=== PATIENT | female | born 1965 | race Caucasian/White ===

== ENCOUNTER → 2018-07-13 11:40 | Outpatient (CLI) | payer OTHER, SELFPAY ==
--- NOTE | 2018-07-13 11:42 | DI.MG.S_ITS ---
BILATERAL DIGITAL SCREENING MAMMOGRAM 3D/2D WITH CAD: 07/13/2018 CLINICAL: Routine screening. Comparison is made to exams dated: 08/08/2015 mammogram - [facility], 07/27/2014 mammogram, and 07/20/2014 mammogram - [facility] [place]. The tissue of both breasts is heterogeneously dense. This may lower the sensitivity of mammography. Current study was also evaluated with a Computer Aided Detection (CAD) system. No significant masses, calcifications, or other findings are seen in either breast. There has been no significant interval change. IMPRESSION: NEGATIVE There is no mammographic evidence of malignancy. A 1 year screening mammogram is recommended. This exam was interpreted at Station ID: [id number]. NOTE: For mammograms, a report in lay terms will be sent to the patient. Approximately 15% of breast malignancies will not be visualized mammographically. In the management of a palpable breast mass, a negative mammogram must not discourage biopsy of a clinically suspicious lesion. Electronically Signed By: Steffi gonzalez/juno:07/13/2018 14:39:31 letter sent: Normal Exam ACR BI-RADS Category 1: Negative 3341F
== END ==
PROVIDERS: PCP Family Medicine; Visit Provider Family Medicine
DX: Z12.31 Encounter for screening mammogram for malignant neoplasm of breast (principal)
CPT/HCPCS: 77063; 77067

== ENCOUNTER → 2018-07-15 06:37 | Outpatient (CLI) | payer OTHER, SELFPAY ==
[2018-07-15 07:45] LABS: Add Manual Diff / Slide Review NO; Basophils Percent Auto 1.2 % (0-2); Eosinophils Percent Auto 1.8 % (2-4); Hematocrit 39.3 % (36-46); Hemoglobin 13.2 g/dL (12.0-16.0); Lymphocytes Percent Auto 34.6 % (25-40); Mean Corpuscular HGB Conc 33.6 % (30-36); Mean Corpuscular Hemoglobin 30.1 PG (26-34); Mean Corpuscular Volume 89.4 fL (80-100); Neutrophils Absolute Auto 3200 /uL (3000-5900); Neutrophils Percent Auto 54.4 % (50-75); Platelet Count 267 X10^3/uL (150-400); Red Blood Cell Count 4.39 X10^6/uL (4.0-5.2); Red Cell Distribution Width 12.9 % (11.6-14.8); White Blood Cell Count 5.8 X10^3/uL (4.5-11.0)
[2018-07-15 07:57] LABS: Alanine Aminotransferase 25 IU/L (9-52); Albumin 4.4 g/dL (3.5-5.0); Albumin Globulin Ratio 1.5 (1.0-2.8); Alkaline Phosphatase 60 U/L (38-126); Aspartate Aminotransferase 28 IU/L (14-36); BUN Creatinine Ratio 16.3 (6-22); Bilirubin Total 0.5 mg/dL (0.2-1.3); Blood Urea Nitrogen 13 mg/dL (7-17); Calcium 9.5 mg/dL (8.4-10.2); Carbon Dioxide 30 mmol/L (22-32); Chloride 102 mmol/L (98-107); Cholesterol 200 mg/dL (140-199); Estimated Glomerular Filt Rate > 60.0 mL/min (>60); Glucose 101 mg/dL (70-100); HDL Cholesterol 66 mg/dL (40-60); HEMOLYSIS < 15 (0-50); LDL Cholesterol Calculated 97 mg/dL (<100); Potassium 4.5 mmol/L (3.4-5.1); Sodium 141 mmol/L (137-145); Total Protein 7.4 g/dL (6.3-8.2); Triglycerides 186 mg/dL (35-150)
[2018-07-15 08:21] LABS: Vitamin D 25 Hydroxy (D3) 50.5 ng/mL (30.0-100.0)
== END ==
PROVIDERS: PCP Family Medicine; Visit Provider Family Medicine
DX: Z86.2 Personal history of diseases of the blood and blood-forming organs and certain disorders involving the immune mechanism (principal); Z13.1 Encounter for screening for diabetes mellitus; E55.9 Vitamin D deficiency, unspecified; Z13.220 Encounter for screening for lipoid disorders
CPT/HCPCS: 36415; 80053; 80061; 82306; 85025

== ENCOUNTER → 2018-09-08 09:00 | Outpatient (CLI) | payer OTHER, SELFPAY | PROVIDERS: PCP Family Medicine | DX: Z23 Encounter for immunization (principal) | CPT/HCPCS: 90471; 90686 ==

== ENCOUNTER → 2019-08-25 12:04 | Outpatient (CLI) | payer OTHER, SELFPAY ==
--- NOTE | 2019-08-25 | DI.MG.S_ITS ---
BILATERAL DIGITAL SCREENING MAMMOGRAM 3D/2D WITH CAD: 08/25/2019 CLINICAL: Routine screening. Comparison is made to exams dated: 07/13/2018 mammogram, 08/08/2015 mammogram - [facility], and 07/27/2014 mammogram - [facility]. The tissue of both breasts is heterogeneously dense. This may lower the sensitivity of mammography. Current study was also evaluated with a Computer Aided Detection (CAD) system. No significant masses, calcifications, or other findings are seen in either breast. There has been no significant interval change. IMPRESSION: NEGATIVE There is no mammographic evidence of malignancy. A 1 year screening mammogram is recommended. This exam was interpreted at Station ID: [id number]. NOTE: For mammograms, a report in lay terms will be sent to the patient. Approximately 15% of breast malignancies will not be visualized mammographically. In the management of a palpable breast mass, a negative mammogram must not discourage biopsy of a clinically suspicious lesion. Electronically Signed By: Kathy faulkner/juno:08/25/2019 16:13:24 letter sent: Normal Exam ACR BI-RADS Category 1: Negative 3341F
== END ==
PROVIDERS: PCP Family Medicine; Visit Provider Family Medicine
DX: Z12.31 Encounter for screening mammogram for malignant neoplasm of breast (principal)
CPT/HCPCS: 77063; 77067

== ENCOUNTER → 2019-09-14 14:44 | Outpatient (CLI) | payer OTHER, SELFPAY | PROVIDERS: PCP Family Medicine | DX: Z23 Encounter for immunization (principal) | CPT/HCPCS: 90471; 90686 ==

== ENCOUNTER → 2020-08-29 09:07 | Outpatient (CLI) | payer OTHER, SELFPAY ==
[2020-08-29 10:14] LABS: Add Manual Diff / Slide Review NO; Basophils Absolute Auto 100 /uL (0-100); Basophils Percent Auto 1.2 % (0-2); Eosinophils Absolute Auto 100 /uL (0-450); Eosinophils Percent Auto 2.1 % (2-4); Hematocrit 38.6 % (36-46); Hemoglobin 12.6 g/dL (12.0-16.0); Lymphocytes Absolute Auto 1400 /uL (1100-4500); Lymphocytes Percent Auto 26.2 % (25-40); Mean Corpuscular HGB Conc 32.7 % (30-36); Mean Corpuscular Volume 88.7 fL (80-100); Monocytes Absolute Auto 300 /uL (0-900); Monocytes Percent Auto 6.2 % (3-14); Neutrophils Absolute Auto 3500 /uL (1500-7000); Neutrophils Percent Auto 64.3 % (50-75); Platelet Count 296 X10^3/uL (150-400); Red Blood Cell Count 4.36 X10^6/uL (4.0-5.2); Red Cell Distribution Width 13.1 % (11.6-14.8); White Blood Cell Count 5.4 X10^3/uL (4.5-11.0)
[2020-08-29 11:55] LABS: Alanine Aminotransferase 22 IU/L (<35); Albumin 4.2 g/dL (3.5-5.0); Albumin Globulin Ratio 1.6 (1.0-2.8); Alkaline Phosphatase 73 U/L (38-126); Aspartate Aminotransferase 27 IU/L (14-36); BUN Creatinine Ratio 18.7 (6-22); Bilirubin Total 0.6 mg/dL (0.2-1.3); Blood Urea Nitrogen 14 mg/dL (7-17); Calcium 9.3 mg/dL (8.4-10.2); Carbon Dioxide 30 mmol/L (22-32); Chloride 102 mmol/L (98-107); Cholesterol 221 mg/dL (140-199); Estimated Glomerular Filt Rate > 60.0 mL/min (>60); Globulin 2.7 g/dL (1.7-4.1); Glucose 97 mg/dL (70-100); HDL Cholesterol 75 mg/dL (40-60); HEMOLYSIS < 15 (0-50); LDL Cholesterol Calculated 111 mg/dL (<100); Potassium 4.7 mmol/L (3.4-5.1); Sodium 139 mmol/L (137-145); Total Protein 6.9 g/dL (6.3-8.2); Triglycerides 174 mg/dL (35-150)
[2020-08-29 12:21] LABS: TSH w/ Reflex to FT4 1.26 uIU/mL (0.47-4.68)
== END ==
PROVIDERS: PCP Family Medicine; Referring Provider Family Medicine; Visit Provider Family Medicine
DX: R07.9 Chest pain, unspecified (principal)
CPT/HCPCS: 36415; 80053; 80061; 84443; 85025

== ENCOUNTER → 2020-09-01 15:47 | Outpatient (CLI) | payer OTHER, SELFPAY ==
--- NOTE | 2020-09-01 15:48 | DI.RAD.S_ITS ---
PROCEDURE: XR CHEST 2V INDICATIONS: chest pain TECHNIQUE: 2 views of the chest were acquired. COMPARISON: None. FINDINGS: Surgical changes and devices: None. Lungs and pleura: Lungs are clear. No pleural effusions or pneumothorax. Mediastinum: Mediastinal contours are normal. Heart size is normal. Bones and chest wall: No suspicious bony abnormalities. Soft tissues appear unremarkable. IMPRESSION: No acute pulmonary process. Dictated by: Elisa Castillo M.D. on 09/01/2020 at 16:18 Approved by: Elisa Castillo M.D. on 09/01/2020 at 16:20
== END ==
PROVIDERS: PCP Family Medicine; Referring Provider Family Medicine; Visit Provider Family Medicine
DX: R07.9 Chest pain, unspecified (principal)
CPT/HCPCS: 71046

== ENCOUNTER → 2020-09-22 14:39 | Outpatient (CLI) | payer OTHER, SELFPAY ==
--- NOTE | 2020-09-22 14:39 | DI.MG.S_ITS ---
BILATERAL DIGITAL SCREENING MAMMOGRAM 3D/2D WITH CAD: 09/22/2020 CLINICAL: Routine screening. Comparison is made to exams dated: 08/25/2019 mammogram, 07/13/2018 mammogram, and 08/08/2015 mammogram - [facility]. There are scattered fibroglandular elements in both breasts. Current study was also evaluated with a Computer Aided Detection (CAD) system. There is a 2.2 cm oval equal density focal asymmetry in the left breast at 4 o'clock middle depth. This is more prominent and increased in size. No other significant masses, calcifications, or other findings are seen in either breast. IMPRESSION: INCOMPLETE: NEEDS ADDITIONAL IMAGING EVALUATION The 2.2 cm oval equal density focal asymmetry in the left breast resembles a cyst and is indeterminate. Additional views with possible ultrasound are recommended. This exam was interpreted at Station ID: [id number]. NOTE: For mammograms, a report in lay terms will be sent to the patient. Approximately 15% of breast malignancies will not be visualized mammographically. In the management of a palpable breast mass, a negative mammogram must not discourage biopsy of a clinically suspicious lesion. Electronically Signed By: Omari Singh M.D. aty/:09/22/2020 16:03:30 letter sent: Additional Imaging Needed ACR BI-RADS Category 0: Incomplete 3340F
== END ==
PROVIDERS: PCP Family Medicine; Referring Provider Family Medicine; Visit Provider Family Medicine
DX: Z12.31 Encounter for screening mammogram for malignant neoplasm of breast (principal)
CPT/HCPCS: 77063; 77067

== ENCOUNTER → 2020-09-24 11:06 | Outpatient (CLI) | payer OTHER, SELFPAY ==
[2020-09-25 12:27] LABS: COVID19 Sendout Not Detected (Not Detect)
== END ==
PROVIDERS: PCP Family Medicine; Visit Provider Physician Assistant
DX: Z11.59 Encounter for screening for other viral diseases (principal)
CPT/HCPCS: 87635

== ENCOUNTER → 2020-09-27 08:01 | Outpatient (CLI) | payer OTHER, SELFPAY ==
--- NOTE | 2020-09-27 09:18 | PM.TREADMILL ---
Cardiac Stress Test Report Referral & Results Date Patient Seen: 09/27/20 Time Patient Seen: 09:00 Requesting provider: Anju Hathaway Indication: Atypical angina, strong family history Rest ECG: Normal sinus rhythm Procedure Note: Today following both written and verbal informed consent, the patient was exercised according to a standard J Luis protocol. The patient exercised for a total of 9 minutes achieving a maximum heart rate of 181. Patient's maximum systolic blood pressure was 156. This was an estimated 10.1 METs. Normal hemodynamic response to exercise. No signs or symptoms of angina. FAA eye-15% on active scale. No ST changes or arrhythmias. Impression: Low probability for ischemia. Barker treadmill score of 9 is correlated with 97% 5 year survival from cardiac causes of mortality. Please note: Actual ECG tracings can be found in the PACS system.
== END ==
PROVIDERS: PCP Family Medicine; Referring Provider Family Medicine; Visit Provider Family Medicine
DX: I20.9 Angina pectoris, unspecified (principal); R07.89 Other chest pain
CPT/HCPCS: 93016; 93017; 93018

== ENCOUNTER → 2020-10-18 08:07 | Outpatient (CLI) | payer OTHER, SELFPAY ==
--- NOTE | 2020-10-18 08:08 | DI.MG.S_ITS ---
UNILATERAL LEFT DIGITAL DIAGNOSTIC MAMMOGRAM 3D/2D WITH ADDITIONAL VIEWS: 10/18/2020 CLINICAL: Additional evaluation requested from prior study. Comparison is made to exams dated: 08/25/2019 mammogram, 09/22/2020 mammogram, and 07/13/2018 mammogram - [facility]. There are scattered fibroglandular elements in left breast. There is a 2.2 cm oval low density mass with a circumscribed margin in the left breast at 3 o'clock middle depth. This is seen in additional views. No other significant masses or calcifications are seen in the breast. IMPRESSION: INCOMPLETE: NEEDS ADDITIONAL IMAGING EVALUATION The 2.2 cm oval low density mass in the left breast is indeterminate. An ultrasound is recommended. This exam was interpreted at Station ID: [id number]. NOTE: For mammograms, a report in lay terms will be sent to the patient. Approximately 15% of breast malignancies will not be visualized mammographically. In the management of a palpable breast mass, a negative mammogram must not discourage biopsy of a clinically suspicious lesion. SUMMARY: Targeted ultrasound is recommended for further evaluation and will be scheduled immediately following this exam. Electronically Signed By: Jase cobos/juno:10/18/2020 10:31:45 ACR BI-RADS Category 0: Incomplete 3340F
--- NOTE | 2020-10-18 08:08 | DI.US.S_ITS ---
LIMITED ULTRASOUND OF LEFT BREAST: 10/18/2020 CLINICAL: Additional evaluation requested from prior study. Left breast. Comparison is made to exams dated: 10/18/2020 mammogram, 09/22/2020 mammogram, 08/25/2019 mammogram, and 07/13/2018 mammogram - [facility]. Color flow and real-time ultrasound of the left breast 3 o'clock region were performed. Pollock scale images of the real-time examination were reviewed. There is a benign 2 cm x 1.7 cm x 1.4 cm oval cyst with a septated internal wall in the left breast at 3 o'clock middle depth 7 cm from the nipple. This oval cyst is anechoic with a well-defined boundary and posterior acoustic enhancement. This correlates with mammography findings. IMPRESSION: BENIGN There is no sonographic evidence of malignancy. The 2 cm x 1.7 cm x 1.4 cm oval cyst in the left breast is benign. A 1 year screening mammogram is recommended. This exam was interpreted at Station ID: [id number]. Electronically Signed By: Jase cobos/juno:10/18/2020 10:34:11 letter sent: Normal Exam Ultrasound BI-RADS: 2 Benign
== END ==
PROVIDERS: PCP Family Medicine; Referring Provider Family Medicine; Visit Provider Family Medicine
DX: R92.8 Other abnormal and inconclusive findings on diagnostic imaging of breast (principal)
CPT/HCPCS: 76642; 77065; G0279

== ENCOUNTER → 2020-10-18 | Outpatient (CLI) | payer OTHER, SELFPAY | PROVIDERS: PCP Family Medicine; Referring Provider Internal Medicine; Visit Provider Internal Medicine | DX: Z23 Encounter for immunization (principal) | CPT/HCPCS: 90471; 90686 ==

== ENCOUNTER → 2020-11-30 10:47 | Outpatient (CLI) | payer OTHER, SELFPAY ==
[2020-11-30] MEDS: COVID-19 VACC(MODERNA-1)/PF 100 MCG/0.5 ML VIAL IM (10:56)
== END ==
PROVIDERS: PCP Family Medicine; Visit Provider Internal Medicine
DX: Z23 Encounter for immunization (principal)
CPT/HCPCS: 0011A; 91301

== ENCOUNTER 2020-12-06 11:29 | Emergency (ER) | payer OTHER, SELFPAY ==
[2020-12-06 11:48] VITALS: BP 178/81; PULSE 68; RESP 18; TEMP 37.2; O2SAT 96; BMI 28.1
--- NOTE | 2020-12-06 12:13 | ED_ITS ---
HPI - General Adult <WINSTON Garcia - Last Filed: 12/06/20 16:38> General Chief complaint: Blood/Body fluid exposure Stated complaint: needle stick Time Seen by Provider: 12/06/20 11:40 Source: patient Mode of arrival: Ambulatory Limitations: no limitations History of Present Illness HPI narrative: 55yo female presents emergency department after a needlestick. 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 She states she wash the area. She has been vaccinated for hepatitis B in the past, she reports her last Tdap was approximately 5 years ago. She denies any known HIV or hepatitis infection. She reports source patient consents to testing, denies hepatitis. Patient denies any other symptoms such as significant pain, fevers, redness, swelling, or uncontrollable bleeding. Patient declined HIV prophylaxis medication. Employee health forms signed, copies given infected [employer] health. Coordinator aware of source patient. Related Data Previous Rx's Medication Instructions Recorded multivitamin 1 tab PO DAILY #90 tab 06/29/18 propranolol 80 mg capsule,24 80 mg PO DAILY #90 cap 08/24/19 hr,extended release propranolol 40 mg tablet 40 mg PO BID #30 tab 08/29/20 conj estrogen-medroxyprogesterone 1 tab PO DAILY #3 package 09/18/20 0.625 mg-2.5 mg tablet Allergies Allergy/AdvReac Type Severity Reaction Status Date / Time No Known Drug Allergies Allergy Verified 08/24/19 08:54 Review of Systems <WINSTON Garcia - Last Filed: 12/06/20 16:38> Review of Systems Narrative: REVIEW OF SYSTEMS: GENERAL: Denies fever. HENT: No head trauma. CARDIOVASCULAR: No chest pain. RESPIRATORY: No shortness of breath or cough. GASTROINTESTINAL: No nausea. MUSCULOSKELETAL: Reports needlestick to left hand, see HPI. INTEGUMENTARY: No rash. NEURO: No numbness or tingling. Patient History <WINSTON Garcia - Last Filed: 12/06/20 16:38> Medical History Endometriosis Hx of abnormal mammogram (~2015) Migraines On postmenopausal hormone replacement therapy Surgical History H/O hernia repair S/P laparoscopic supracervical hysterectomy Status post breast reduction Family History Mother Cancer Father Dementia Social History marital status: household members: spouse lives independently: Yes caregiver/support person: No education level: college occupational status: employed Smoking Status: Never smoker second hand exposure: No alcohol intake: current (wine or beer occasionally) substance use type: does not use well-balanced diet: daily or most days Type(s) of exercise: running (Daily) Smoking Status: Never smoker Substance Use Type: does not use Exam <WINSTON Garcia - Last Filed: 12/06/20 16:38> Initial Vital Signs Initial Vital Signs: Vital Signs Temperature 98.9 F 12/06/20 11:48 Pulse Rate 68 12/06/20 11:48 Respiratory Rate 18 12/06/20 11:48 Blood Pressure 178/81 H 12/06/20 11:48 Pulse Oximetry 96 12/06/20 11:48 PHYSICAL EXAMINATION: GENERAL: Awake and alert. HENT: Normocephalic, atraumatic. RESPIRATORY: Normal respiratory rate, trachea midline, airway patent. No stridor, nasal flaring or accessory muscle use. MUSCULOSKELETAL: Normal gait and coordination. Equal tone and mass bilaterally. EXTREMITIES: CMS intact. Moves all extremities. SKIN: Warm, dry, soft, appropriate color for ethnicity. Small needlestick noted to left 5th finger, no bleeding. No erythema. NEURO: Alert and Oriented X 3. Good coordination. PSYCH: Appropriate affect and mood. <Melodie Calderon MD - Last Filed: 12/07/20 07:35> Initial Vital Signs Initial Vital Signs: Vital Signs Temperature 98.9 F 12/06/20 11:48 Pulse Rate 68 12/06/20 11:48 Respiratory Rate 18 12/06/20 11:48 Blood Pressure 178/81 H 12/06/20 11:48 Pulse Oximetry 96 12/06/20 11:48 Course <WINSTON Garcia - Last Filed: 12/06/20 16:38> Orders Ordered: Discontinued Medications Diphtheria/Tetanus/Acell Pertussis (Tet,Diph,Pertuss(Acell),Vac/Pf 0.5 Ml Syringe) 0.5 ml IM .ONCE ONE Stop: 12/06/20 12:05 Last Admin: 12/06/20 12:14 Dose: 0.5 ml Documented by: RSTONE Vital Signs Vital signs: Vital Signs - 8 hr 12/06/20 11:48 Temperature 98.9 F Pulse Rate 68 Respiratory Rate 18 Blood Pressure 178/81 H Pulse Oximetry 96 <Melodie Calderon MD - Last Filed: 12/07/20 07:35> Orders Ordered: Discontinued Medications Diphtheria/Tetanus/Acell Pertussis (Tet,Diph,Pertuss(Acell),Vac/Pf 0.5 Ml Syringe) 0.5 ml IM .ONCE ONE Stop: 12/06/20 12:05 Last Admin: 12/06/20 12:14 Dose: 0.5 ml Documented by: RSTONE Vital Signs Vital signs: Vital Signs - 8 hr 12/06/20 11:48 Temperature 98.9 F Pulse Rate 68 Respiratory Rate 18 Blood Pressure 178/81 H Pulse Oximetry 96 Medical Decision Making <WINSTON Garcia - Last Filed: 12/06/20 16:38> Lab Data Labs: Lab Results 12/06/20 12/06/20 Range/Units 12:13 12:13 ALT 23 (<35) IU/L Hepatitis C Antibody Negative (NEGATIVE) s/c HIV 1&2 Ab/P24 Ag 4thGn Negative (NEGATIVE) <Melodie Calderon MD - Last Filed: 12/07/20 07:35> Lab Data Labs: Lab Results 12/06/20 12/06/20 Range/Units 12:13 12:13 ALT 23 (<35) IU/L Hepatitis C Antibody Negative (NEGATIVE) s/c HIV 1&2 Ab/P24 Ag 4thGn Negative (NEGATIVE) Discharge Plan Departure Patient Disposition: Home Clinical Impression: Needlestick injury accident, Exposure to blood-borne pathogen Instructions: DI for Accidental Exposure to Body Fluids Activity Restrictions/Additional Instructions: Thank you for entrusting me with your care today. As discussed, you have been exposed to body fluids. We have drawn your labs to test for HIV, hepatitis, and evaluate your liver enzymes. We have updated your Tdap today. Please call employee health as soon as possible to schedule a follow-up. Return emergency department for any new or worsening symptoms. Prescriptions: No Action propranolol 80 mg capsule,extended release 24 hr 80 mg PO DAILY Qty: 90 RF: 3 propranolol 40 mg tablet 40 mg PO BID Qty: 30 RF: 0 Prempro 0.625-2.5 mg tablet 1 tab PO DAILY Qty: 3 RF: 3 multivitamin [Multiple Vitamins] tablet 1 tab PO DAILY Qty: 90 RF: 0 Referrals: Anju Hathaway DO [Primary Care Provider] - <Melodie Calderon MD - Last Filed: 12/07/20 07:35> Cosign ED Attending Cosignature Attestation: I was immediately available in the department for consultation throughout this patient's visit. I agree with documentation as above. Melodie Calderon MD
[2020-12-06] MEDS: TET,DIPH,PERTUSS(ACELL),VAC/PF 0.5 ML SYRINGE IM (12:14)
[2020-12-06 12:36] LABS: Alanine Aminotransferase 23 IU/L (<35)
[2020-12-06 16:14] LABS: HIV 1 & 2 Ab/Ag 4th Gen Combo NEGATIVE (NEGATIVE); Hep C Virus Ab w/Reflex Quant NEGATIVE s/c (NEGATIVE)
[2020-12-07 08:09] LABS: Hepatitis B Surf Ab Qualitativ Non Reactive (.)
== END 2020-12-06 12:44 | disposition home or self-care (01) ==
PROVIDERS: Emergency Provider Nurse Practitioner; PCP Family Medicine
DX: Z77.21 Contact with and (suspected) exposure to potentially hazardous body fluids (principal); Z23 Encounter for immunization
CPT/HCPCS: 36415; 84460; 86706; 86803; 87389; 90471; 99283; 90715

== ENCOUNTER → 2020-12-27 11:49 | Outpatient (CLI) | payer OTHER, SELFPAY ==
[2020-12-27] MEDS: COVID-19 VACC #2, MRNA(MOD) 100 MCG/0.5 ML VIAL IM (11:57)
== END ==
PROVIDERS: PCP Family Medicine; Visit Provider Internal Medicine
DX: Z23 Encounter for immunization (principal)
CPT/HCPCS: 0012A; 91301

== ENCOUNTER → 2021-02-24 07:22 | Outpatient (CLI) | payer OTHER, SELFPAY ==
--- NOTE | 2021-02-24 07:27 | DI.RAD.S_ITS ---
PROCEDURE: XR SHOULDER RT MIN 2V INDICATIONS: right shoulder pain TECHNIQUE: 3 views of the shoulder were acquired. COMPARISON: [facility], CR, XR CHEST 2V, 09/01/2020, 15:37. FINDINGS: Bones: No fractures or dislocations. No suspicious bony lesions. Visualized ribs appear intact. Mild degenerative changes are seen, with minimal subacromial spurring. Soft tissues: No suspicious soft tissue calcifications. The visualized lung demonstrates an unremarkable appearance. IMPRESSION: No significant plain film abnormality is seen for age. If it would be helpful for clinical management decision making, please consider a dedicated shoulder MRI for further evaluation (assuming that there is no contraindication). Dictated by: Pavan Walsh M.D. on 02/24/2021 at 8:45 Approved by: Pavan Walsh M.D. on 02/24/2021 at 8:45
== END ==
PROVIDERS: PCP Family Medicine; Referring Provider Family Medicine; Visit Provider Family Medicine
DX: M25.511 Pain in right shoulder (principal)
CPT/HCPCS: 73030

== ENCOUNTER → 2021-04-12 09:29 | Outpatient (CLI) | payer OTHER, SELFPAY ==
--- NOTE | 2021-04-12 09:29 | DI.MRI.S_ITS ---
PROCEDURE: MR SHOULDER RT WO CON INDICATIONS: R shoulder pain TECHNIQUE: Noncontrast oblique coronal T2 fast spin echo with fat saturation, oblique sagittal T1 spin echo and T2 fast spin echo with fat saturation, axial T1 spin echo and T2 fast spin echo with fat saturation through the shoulder. COMPARISON: None. FINDINGS: Rotator cuff: Supraspinatus and infraspinatus tendinopathy with low-grade partial thickness articular and bursal sided tear, less than 50% of tendon thickness. Teres minor tendon appears intact. Subscapularis appears intact. No atrophy of the rotator cuff muscles. Bones and bursae: No bone marrow contusions or fractures. Moderate acromioclavicular joint degeneration. Acromion demonstrates conventional anatomy, without an os acromiale. Mild-moderate subacromial-subdeltoid bursitis. Capsule and soft tissues: Labrum: Incidental sublabral foramen noted. Ill-defined fraying of the superior labrum which is probably age-appropriate. Small bone island seen in the glenoid on image 20/8. Biceps: Long head of the biceps tendon intact. Rotator interval: Normal signal intensity. Coracohumeral ligament: Intact. IMPRESSION: Low-grade partial thickness articular and bursal sided tear of the rotator cuff as above. [id number] subacromial-subdeltoid bursitis Dictated by: Jimi Gale M.D. on 04/12/2021 at 10:09 Approved by: Jimi Gale M.D. on 04/12/2021 at 10:14
== END ==
PROVIDERS: PCP Family Medicine; Referring Provider Family Medicine; Visit Provider Family Medicine
DX: M25.511 Pain in right shoulder (principal); M75.111 Incomplete rotator cuff tear or rupture of right shoulder, not specified as traumatic; M75.51 Bursitis of right shoulder
CPT/HCPCS: 73221

== ENCOUNTER → 2021-10-11 18:58 | Outpatient (CLI) | payer OTHER, SELFPAY | PROVIDERS: PCP Family Medicine; Referring Provider Internal Medicine; Visit Provider Internal Medicine | DX: Z23 Encounter for immunization (principal) | CPT/HCPCS: 90471; 90686 ==

== ENCOUNTER → 2021-11-09 13:21 | Outpatient (CLI) | payer OTHER, SELFPAY ==
--- NOTE | 2021-11-09 13:22 | DI.MG.S_ITS ---
BILATERAL DIGITAL DIAGNOSTIC MAMMOGRAM 3D/2D: 11/09/2021 CLINICAL: Left breast lump. Comparison is made to exams dated: 10/18/2020 mammogram, 09/22/2020 mammogram, and 08/25/2019 mammogram - [facility]. There are scattered fibroglandular elements in both breasts. There is a 2.8 cm oval equal density mass with a circumscribed margin in the left breast at 2 o'clock middle depth. This is seen in additional views. This is more prominent and increased in size and correlates as palpated, to the area of reported pain, with prior ultrasound findings demonstrating a simple cyst, and area of clinical concern. No other significant masses, calcifications, or other findings are seen in either breast. IMPRESSION: INCOMPLETE: NEEDS ADDITIONAL IMAGING EVALUATION The 2.8 cm oval equal density mass in the left breast most likely is a cyst and is indeterminate. An ultrasound is recommended for further evaluation and is scheduled to immediately follow this examination. This exam was interpreted at Station ID: [id number]. NOTE: For mammograms, a report in lay terms will be sent to the patient. Approximately 15% of breast malignancies will not be visualized mammographically. In the management of a palpable breast mass, a negative mammogram must not discourage biopsy of a clinically suspicious lesion. Electronically Signed By: Omari Singh M.D. aty/:11/09/2021 14:19:30 ACR BI-RADS Category 0: Incomplete 3340F
--- NOTE | 2021-11-09 13:22 | DI.US.S_ITS ---
ULTRASOUND OF LEFT BREAST: 11/09/2021 CLINICAL: Palpable left breast lump. Comparison is made to exams dated: 11/09/2021 mammogram, 10/18/2020 ultrasound, 10/18/2020 mammogram, 09/22/2020 mammogram, 08/25/2019 mammogram, and 07/13/2018 mammogram - [facility]. Color flow and real-time ultrasound of the left breast were performed. Pollock scale images of the real-time examination were reviewed. Persistent 2.7 cm x 1.5 cm x 2.4 cm oval simple cyst with a separate, small adjacent simple cyst more superficially in the left breast at 3 o'clock middle depth 7 cm from the nipple. This oval cyst is anechoic with a well-defined boundary and posterior acoustic enhancement. This abnormality is increased in size and more prominent and correlates as palpated, to the reported pain, with mammography findings, and area of clinical concern. Color flow imaging demonstrates that there is no vascularity present. IMPRESSION: BENIGN There is no sonographic evidence of malignancy. The 2.7 cm x 1.5 cm x 2.4 cm oval simple cyst in the left breast is benign. However, given it's interval increase in size and associated symptoms, an ultrasound guided cyst aspiration for symptomatic relief is recommended. Also, a 1 year screening mammogram is recommended. Findings and recommendations were conveyed to the patient during today's evaluation. This exam was interpreted at Station ID: [id number]. Electronically Signed By: Omari Singh M.D. aty/:11/09/2021 14:34:55 letter sent: Clinical Evaluation Ultrasound BI-RADS: 2 Benign
== END ==
PROVIDERS: PCP Family Medicine; Referring Provider Family Medicine; Visit Provider Family Medicine
DX: R92.8 Other abnormal and inconclusive findings on diagnostic imaging of breast (principal); N60.02 Solitary cyst of left breast
CPT/HCPCS: 76642; 77066; G0279

== ENCOUNTER → 2021-12-07 13:47 | Outpatient (CLI) | payer OTHER, SELFPAY ==
--- NOTE | 2021-12-07 13:49 | DI.US.S_ITS ---
ULTRASOUND GUIDED ASPIRATION LEFT BREAST: 12/07/2021 CLINICAL: Cyst aspiration left breast. Correlation is made to exams dated: 11/09/2021 ultrasound, 11/09/2021 mammogram, 10/18/2020 ultrasound, 10/18/2020 mammogram, 09/22/2020 mammogram, and 08/25/2019 mammogram - [facility]. An aspiration was performed for the palpable circumscribed lobulated cyst located in the left breast at 3 o'clock middle depth. The skin was prepped in the usual manner. Local anesthetic was administered to the access site. The abnormality was approached from the craniocaudal aspect. A 20 gauge needle was percutaneously placed into the abnormality under ultrasound guidance. Once the needle was documented to be in the correct location, 5 ml of opaque brown fluid was aspirated. A skin adhesive was applied to the access site. Post procedure imaging demonstrates the abnormality to be no longer visible. The aspirated fluid was discarded. IMPRESSION: ASPIRATION Aspiration of the cyst in the left breast middle depth was successful with no apparent post procedure complications. Post imaging revealed the abnormality to be no longer visible. Future imaging is recommended as follows: 11/10/2022 screening mammogram. This exam was interpreted at Station ID: [id number]. Josh pringle/:12/07/2021 17:18:33
== END ==
PROVIDERS: PCP Family Medicine; Referring Provider Family Medicine; Visit Provider Family Medicine
DX: N60.02 Solitary cyst of left breast (principal)
CPT/HCPCS: 10005

== ENCOUNTER → 2022-09-12 09:31 | Outpatient (CLI) | payer OTHER, SELFPAY ==
[2022-09-12 10:58] LABS: Alanine Aminotransferase 19 IU/L (<35); Albumin 4.4 g/dL (3.5-5.0); Albumin Globulin Ratio 1.4 (1.0-2.8); Alkaline Phosphatase 78 U/L (38-126); Aspartate Aminotransferase 25 IU/L (14-36); BUN Creatinine Ratio 19.4 (6-22); Bilirubin Total 0.5 mg/dL (0.2-1.3); Blood Urea Nitrogen 14 mg/dL (7-17); Calcium 8.8 mg/dL (8.4-10.2); Carbon Dioxide 25 mmol/L (22-32); Chloride 103 mmol/L (98-107); Cholesterol 222 mg/dL (140-199); Estimated Glomerular Filt Rate > 60 mL/min (>60); Globulin 3.2 g/dL (1.7-4.1); Glucose 101 mg/dL (70-100); HDL Cholesterol 73 mg/dL (40-60); HEMOLYSIS < 15 (0-50); LDL Cholesterol Calculated 116 mg/dL (<100); Potassium 4.1 mmol/L (3.4-5.1); Sodium 138 mmol/L (137-145); Total Protein 7.6 g/dL (6.3-8.2); Triglycerides 164 mg/dL (35-150)
[2022-09-12 11:00] LABS: Add Manual Diff / Slide Review NO; Basophils Absolute Auto 100 /uL (0-100); Basophils Percent Auto 1.1 % (0-2); Eosinophils Absolute Auto 100 /uL (0-450); Eosinophils Percent Auto 1.4 % (2-4); Hematocrit 37.2 % (36-46); Hemoglobin 12.4 g/dL (12.0-16.0); Lymphocytes Absolute Auto 1500 /uL (1100-4500); Lymphocytes Percent Auto 25.2 % (25-40); Mean Corpuscular HGB Conc 33.4 % (30-36); Mean Corpuscular Hemoglobin 28.7 PG (26-34); Mean Corpuscular Volume 86.1 fL (80-100); Monocytes Absolute Auto 300 /uL (0-900); Monocytes Percent Auto 4.3 % (3-14); Neutrophils Absolute Auto 4100 /uL (1500-7000); Platelet Count 304 X10^3/uL (150-400); Red Blood Cell Count 4.32 X10^6/uL (4.0-5.2); Red Cell Distribution Width 13.9 % (11.6-14.8); White Blood Cell Count 6.1 X10^3/uL (4.5-11.0)
[2022-09-12 11:36] LABS: TSH w/ Reflex to FT4 1.13 uIU/mL (0.47-4.68)
== END ==
PROVIDERS: PCP Family Medicine; Referring Provider Family Medicine; Visit Provider Family Medicine
DX: I10 Essential (primary) hypertension (principal); E78.5 Hyperlipidemia, unspecified
CPT/HCPCS: 36415; 80053; 80061; 84443; 85025

== ENCOUNTER → 2022-10-10 08:32 | Outpatient (CLI) | payer OTHER, SELFPAY ==
--- NOTE | 2022-10-10 08:33 | DI.US.S_ITS ---
LIMITED ULTRASOUND OF LEFT BREAST: 10/10/2022 CLINICAL: Follow-up of cyst/aspiration. Comparison is made to exams dated: 10/10/2022 mammogram, 12/07/2021 aspiration, 11/09/2021 ultrasound, 11/09/2021 mammogram, and 10/18/2020 ultrasound - [facility]. Color flow ultrasound of the left breast 3 o'clock region was performed. Pollock scale images of the real-time examination were reviewed. There is a 0.6 cm x 0.5 cm x 0.5 cm oval cyst in the left breast at 3 o'clock middle depth 6 cm from the nipple. This abnormality is decreased in size following cyst aspiration as seen on mammogram. Color flow imaging demonstrates that there is no vascularity present. There also is a stable 0.6 cm x 0.7 cm x 0.5 cm oval simple cyst in the left breast at 3 o'clock middle depth 6 cm from the nipple. This correlates with the persistent mammography findings. Color flow imaging demonstrates that there is no vascularity present. IMPRESSION: BENIGN The 0.6 cm cyst in the left breast at 3 o'clock has been aspirated, decreased from 2.7 cm and is benign. The stable 0.7 cm oval simple cyst in the left breast at 3 o'clock middle depth correlates with the persistent mammographic finding in the 3:00 left breast and is benign. Return to annual mammogram screening schedule is recommended. Findings and recommendations were conveyed to the patient at time of exam. This exam was interpreted at Station ID: [id number]. Electronically Signed By: Kathy faulkner/:10/10/2022 09:59:19 letter sent: Normal Exam Ultrasound BI-RADS: 2 Benign
--- NOTE | 2022-10-10 08:33 | DI.MG.S_ITS ---
BILATERAL DIGITAL DIAGNOSTIC MAMMOGRAM 3D/2D: 10/10/2022 CLINICAL: Left breast lump. Comparison is made to exams dated: 11/09/2021 ultrasound, 11/09/2021 mammogram, 10/18/2020 ultrasound, 10/18/2020 mammogram, and 09/22/2020 mammogram - [facility]. Both breasts are heterogeneously dense, which may obscure small masses (category c / 51-75% glandular tissue). Prior cyst in the left breast at 2 o'clock has been aspirated and nearly entirely resolved. There is a persistent 0.7 cm asymmetry in the same location. No suspicious features have developed. No significant masses, calcifications, or other findings are seen in either breast. IMPRESSION: INCOMPLETE: NEEDS ADDITIONAL IMAGING EVALUATION Near complete resolution of aspirated left breast cyst since the prior study. Ultrasound to confirm lack of suspicious features is recommended and was performed immediately following this exam. Mammograms are otherwise stable. Based on the Tyrer Cuzick model (a risk assessment model) the patient's lifetime risk is 6.3% and her 10 year risk is 2.2%. According to the ACR, ACS, and NCCN guidelines, an annual breast MRI exam along with mammogram is recommended if the patient's lifetime risk is 20% or greater. This exam was interpreted at Station ID: [id number]. NOTE: For mammograms, a report in lay terms will be sent to the patient. Approximately 15% of breast malignancies will not be visualized mammographically. In the management of a palpable breast mass, a negative mammogram must not discourage biopsy of a clinically suspicious lesion. Electronically Signed By: Kathy faulkner/:10/10/2022 09:21:45 ACR BI-RADS Category 0: Incomplete [id number]
== END ==
PROVIDERS: PCP Family Medicine; Referring Provider Family Medicine; Visit Provider Family Medicine
DX: N64.4 Mastodynia; N60.02 Solitary cyst of left breast; R92.2 Inconclusive mammogram
CPT/HCPCS: 76642; 77066; G0279